=== PATIENT | female | born 1995 | race Caucasian/White ===

== ENCOUNTER → 2022-05-01 | Outpatient (CLI) | payer BC ==
--- NOTE | 2022-05-01 14:22 | US ---
EXAMINATION TYPE: US thyroid st tissue head/neck DATE OF EXAM: 05/01/2022 COMPARISON: NONE CLINICAL HISTORY: K11.9 Submandibular salivary gland swelling. Pt states felling swelling left side o f neck in submandibular area Technique: Left submandibular gland in area of pt's swelling was scanned FINDINGS:- submandibular gland appeared wnl, jareth when compared to right submandibular gland Left lateral neck scanned, multiple (up to 3) lymph nodes visualized 7mm-8mm in AP measurement No evidence of organizing fluid collection or mass. The thyroid gland is grossly unremarkable. IMPRESSION: Area of palpable abnormality demonstrates an enlarged lymph node. This can be an infectious/inflammat ory process. No suspicious mass or cystic structure identified. If there remains clinical concern con records tech CT of the neck with IV contrast.
== END | disposition home or self-care (01) ==
LOC: RADUSWWP 13:47
PROVIDERS: ATTEND Family Medicine
DX: R22.1 Localized swelling, mass and lump, neck (principal)
CPT/HCPCS: 76536

== ENCOUNTER → 2023-08-23 | Outpatient (CLI) | payer BC ==
--- NOTE | 2023-08-23 11:21 | US ---
EXAMINATION TYPE: US abdomen complete DATE OF EXAM: 08/23/2023 COMPARISON: NONE CLINICAL INDICATION: Female, 27 years old with history of R10.11 RUQ PAIN; Patient states having hx o f GB issues. Hx of mono. TECHNIQUE: Multiple sonographic images of the abdomen are obtained. FINDINGS: EXAM MEASUREMENTS: Liver Length: 14.0 cm Gallbladder Wall: 0.2 cm CBD: 0.2 cm Spleen: 10.1 cm Right Kidney: 9.9 x 5.6 x 3.3 cm Left Kidney: 10.1 x 4.8 x 5.2 cm Pancreas: wnl Liver: wnl Gallbladder: No hydropic change, stones or wall thickening visualized Evidence for sonographic Sandra's sign: neg CBD: wnl Spleen: wnl Right Kidney: Small extrarenal pelvis. No calyceal dilatation to suggest hydronephrosis. Left Kidney: No hydronephrosis or masses seen Upper IVC: wnl Abd Aorta: No AAA visualized. IMPRESSION: No gallstones or biliary ductal dilatation. No specific abnormality seen.
== END | disposition home or self-care (01) ==
LOC: RADUSWWP 09:47
PROVIDERS: ATTEND Family Medicine
DX: R10.11 Right upper quadrant pain (principal); Z87.19 Personal history of other diseases of the digestive system
CPT/HCPCS: 76700